=== PATIENT | female | born 1955 | race African-American/Black ===

== ENCOUNTER 2021-01-22 08:37 | Emergency (ER) | payer MEDICARE, OTHER ==
[~2021-01-22] VITALS: Ht 180.3 cm; Wt 103.6 kg
[2021-01-22 08:41] VITALS: BP 176/90; Ht 180.3 cm; Wt 103.6 kg
[2021-01-22 09:40] LABS: EOSINOPHILS 3.9 % (0-7); HEMOGLOBIN 13.8 g/dL (12-16); LYMPHOCYTES 22.3 % (15-50); MCH 32.3 pg (26.0-34.0); MCHC 32.9 g/dL (31.0-37.0); MCV 98.2 fL (80.0-100.0); MEAN PLATELET VOLUME 9.6 fL (7.4-10.4); MONOCYTES 8.3 % (2-11); NEUTROPHILS 64.5 % (40-80); PLATELET COUNT 185 10x3/uL (130-400); RBC 4.27 10x6/uL (4.00-5.40); RDW 12.2 % (11.5-14.5)
[2021-01-22 09:54] LABS: CALC OSMOLALITY 282 mosm/kg (275-300); CALCIUM 9.7 mg/dL (8.5-10.1); CHLORIDE - SERUM 104 mmol/L (98-107); CREATININE - SERUM 1.1 mg/dL (0.6-1.3); GLUCOSE 114 mg/dL (74-106); POTASSIUM - SERUM 4.6 mmol/L (3.5-5.1); SODIUM 141 mmol/L (136-145); UREA NITROGEN 14 mg/dL (7-18); eGFR NON AFRICAN AMERICAN 53 mL/min (90-120)
[2021-01-22 09:59] LABS: ALKALINE PHOSPHATASE 101 U/L (30-120); ALT (SGPT) 21 U/L (10-68); BILIRUBIN - TOTAL 1.08 mg/dL (0.2-1.3); LIPASE 224 U/L (73-393); PROTEIN - SERUM 7.7 g/dL (6.4-8.2)
[2021-01-22 10:00] LABS: TROPONIN-I < 0.017 ng/mL (0.000-0.060)
[2021-01-22 11:22] LABS: BILIRUBIN NEGATIVE (NEGATIVE); KETONE NEGATIVE (NEGATIVE); NITRITE NEGATIVE (NEGATIVE); UROBILINOGEN NORMAL mg/dL (< 2)
[2021-01-22] MEDS ORDERED: PHENERGAN25 M1 PO (13:28)
== END 2021-01-22 13:30 | disposition home or self-care (01) ==
LOC: D.ER 08:37
PROVIDERS: Emergency Medicine
DX: R10.9 Unspecified abdominal pain (principal)